=== PATIENT | female | born 1990 | race Caucasian/White ===

== ENCOUNTER 2022-06-29 22:18 | Emergency (ER) | payer SELFPAY ==
[2022-06-29] MEDS ORDERED: SODIUM CHLORIDE 0.9% 1000ML 1,000 ML IV STA (22:36)
[2022-06-29] MEDS ORDERED: KETOROLAC TROMETHAMINE 30 MG/ML VIAL IV ONE (22:45)
[2022-06-29] MEDS ORDERED: PROMETHAZINE 25MG/ NS 50ML (IV) IV ONE (22:45)
[2022-06-29] MEDS ORDERED: FAMOTIDINE 20 MG/2 ML VIAL IV ONE (22:45)
[2022-06-29] MEDS ORDERED: IOPAMIDOL 610MG/1ML 300 MG/ML VIAL IV ONE (22:50)
[2022-06-29] MEDS ORDERED: LORAZEPAM INJ 2 MG/ML VIAL IV ONE (23:00)
[2022-06-30] MEDS ORDERED: SODIUM CHLORIDE 0.9% 1000ML 1,000 ML ONE (00:18)
[2022-06-30] MEDS ORDERED: ONDANSETRON ODT4 MG PO (00:21)
[2022-06-30] MEDS ORDERED: OMEPRAZOLE40 MG PO (00:21)
[2022-06-30 01:10] VITALS: BP 142/88
== END 2022-06-30 01:10 | disposition home or self-care (01) ==
LOC: FSED 22:20
DX: R10.13 Epigastric pain (principal); K29.70 Gastritis, unspecified, without bleeding; E66.9 Obesity, unspecified
CPT/HCPCS: 36415; 74177; 83690; 99284; J2550; J7030; Q9967

== ENCOUNTER 2022-07-18 10:03 | Emergency (ER) | payer SELFPAY ==
[~2022-07-18] VITALS: Ht 162.6 cm; Wt 122.5 kg
[~2022-07-18 10:03] MED LIST: OMEPRAZOLE40 MG PO; ONDANSETRON ODT4 MG PO
[2022-07-18] MEDS ORDERED: FAMOTIDINE 20 MG/2 ML VIAL IV STA (11:51)
[2022-07-18] MEDS ORDERED: KETOROLAC TROMETHAMINE 30 MG/ML VIAL IV STA (11:51)
[2022-07-18] MEDS ORDERED: SODIUM CHLORIDE 0.9% 1000ML 1,000 ML IV SCH (12:45)
[2022-07-18] MEDS ORDERED: SODIUM CHLORIDE 0.9% 100 ML ONE (12:55)
[2022-07-18] MEDS ORDERED: IOPAMIDOL 370 MG/ML 100 ML INFUS..BTL INJ ONE (12:56)
[2022-07-18] MEDS ORDERED: NAPROSYN500 MG PO (15:09)
[2022-07-18] MEDS ORDERED: PANTOPRAZOLE SO40 MG PO (15:10)
[2022-07-18 15:47] VITALS: BP 136/78; PULSE 88; RESP 20; O2SAT 98
== END 2022-07-18 15:50 | disposition home or self-care (01) ==
LOC: FSED 10:21
DX: R09.1 Pleurisy (principal); K21.9 Gastro-esophageal reflux disease without esophagitis; E66.01 Morbid (severe) obesity due to excess calories; F17.210 Nicotine dependence, cigarettes, uncomplicated
CPT/HCPCS: 71260; 80053; 81003; 85025; 93005; 99284; J1885; J7050; Q9967